=== PATIENT | female | born 1995 | race Caucasian/White ===

== ENCOUNTER 2019-10-23 13:56 | Emergency (ER) | payer SELFPAY ==
[2019-10-23 14:01] VITALS: BP 149/77; PULSE 113; RESP 16; TEMP 36.7; O2SAT 100
[2019-10-23 15:06] LABS: Abs Immature Grans 0.02 k/cumm (0.0-0.09); Absolute Basophil Count 0.04 k/cumm (0.0-0.2); Absolute Lymphocyte Count 1.61 k/cumm (1.2-3.4); Absolute Monocyte Count 0.46 k/cumm (0.11-0.7); Basophils % 0.7; Eosinophils % 10.1; HCT 38.9 % (36.0-46.0); HGB 13.8 g/dL (12.0-15.5); Immature Grans % 0.3 %; Lymphocytes % 27.2; Mean Corp. HGB Concentration 35.5 g/dL (32.0-36.0); Mean Corpuscular Hemoglobin 30.6 pg (27.0-33.0); Mean Corpuscular Volume 86.3 fL (80-95); Mean Platelet Volume 9.7 fL (8.0-11.0); Monocytes % 7.8; Neutrophils % 53.9; Platelet Count 396 x1000/uL (130-400); RBC 4.51 m/cumm (4.00-5.20); RBC Distribution Width 12.3 % (11.7-14.6); White Blood Cell Count 5.93 k/cumm (4.4-10.8)
--- NOTE | 2019-10-23 15:51 | ED.GENADUL_ITS ---
Discharge Plan Disposition Patient Disposition: HOME Condition: Stable Discharge Details Chief Complaint: Orthopedic Clinical Impression: Carpopedal spasm Primary Care Provider: None,None ED Provider: James Sanchez Home Meds and New Rx's Prescriptions: No Action No Known Home Meds RF: 0 Discharge Instructions Instructions: Carpopedal Spasm (ED) Additional Instructions: Wear splint as needed, advance activity as tolerated. [id number] medication such as Tylenol and/or Motrin as directed for discomfort. Please watch for new or worsening symptoms and return to the ER for any concerns. I have given my care management team your name and number, they should be reaching out to you tomorrow to help expedite outpatient care. Medical Decision Making This is a 24-year-old female who reports 2-year history of nearly weekly intermittent spasms of bilateral hands and face. Has never had this evaluated before. She does report that it is more highly associated with anxiety but not always present with anxiety. I do appreciate spasm of the right hand. She appears well, nontoxic. As above she does appear slightly anxious. Her pulse in triage was 113 but her heart rate was in the 90s during my evaluation. We discussed breathing techniques and that the most likely diagnosis is certainly that of carpal pedal spasms however I would like to obtain blood work to evaluate her hydration status, electrolytes, calcium level, etc. Given the length of her symptoms, diagnosis of tetanus far less likely. Laboratory values unremarkable. Patient did focus on her breathing, no longer anxious, symptoms were improving. Medical Records Medical records reviewed: Yes I reviewed the patient's medical records. Lab Data Lab results reviewed: Yes I reviewed the patient's lab results. Lab results narrative: Laboratory Tests Range/Units 10/23/19 10/23/19 10/23/19 14:57 14:57 15:24 WBC (4.4-10.8) k/cumm 5.93 Cancelled RBC (4.00-5.20) m/cumm 4.51 Cancelled Hgb (12.0-15.5) g/dL 13.8 Cancelled Hct (36.0-46.0) % 38.9 Cancelled MCV (80-95) fL 86.3 Cancelled MCH (27.0-33.0) pg 30.6 Cancelled MCHC (32.0-36.0) g/dL 35.5 Cancelled RDW (11.7-14.6) % 12.3 Cancelled Plt Count (130-400) x1000/uL 396 Cancelled MPV (8.0-11.0) fL 9.7 Cancelled Immature Gran % % 0.3 Cancelled Neutrophils % 53.9 Cancelled Band Neutrophils % Cancelled Lymphocytes % 27.2 Cancelled Atypical Lymphs % Cancelled Monocytes % 7.8 Cancelled Eosinophils % 10.1 Cancelled Basophils % 0.7 Cancelled Metamyelocytes % Cancelled Myelocytes % Cancelled Promyelocytes % Cancelled Absolute Neutrophils (1.2-6.7) k/cumm 3.20 Cancelled Absolute Lymphocytes (1.2-3.4) k/cumm 1.61 Cancelled Absolute Monocytes (0.11-0.7) k/cumm 0.46 Cancelled Absolute Eosinophils (0.0-0.7) k/cumm 0.60 Cancelled Absolute Basophils (0.0-0.2) k/cumm 0.04 Cancelled Nucleated RBCs Cancelled Differential Comment Cancelled Other Cell Type Cancelled RBC Morphology Cancelled Polychromasia Cancelled Hypochromasia Cancelled Poikilocytosis Cancelled Basophilic Stippling Cancelled Anisocytosis Cancelled Microcytosis Cancelled Macrocytosis Cancelled Spherocytes Cancelled Target Cells Cancelled Tear Drop Cells Cancelled Ovalocytes Cancelled Stomatocytes Cancelled [place] Bodies Cancelled [place] Cells Cancelled Acanthocytes (Spur) Cancelled Schistocytes Cancelled Sodium Cancelled Potassium Cancelled Chloride Cancelled Carbon Dioxide Cancelled Anion Gap Cancelled BUN Cancelled Creatinine Cancelled Estimated GFR/1.73 m2 Cancelled Glucose Cancelled Calcium Cancelled Total Bilirubin Cancelled AST Cancelled ALT Cancelled Alkaline Phosphatase Cancelled Total Protein Cancelled Albumin Cancelled Range/Units 10/23/19 15:35 WBC (4.4-10.8) k/cumm RBC (4.00-5.20) m/cumm Hgb (12.0-15.5) g/dL Hct (36.0-46.0) % MCV (80-95) fL MCH (27.0-33.0) pg MCHC (32.0-36.0) g/dL RDW (11.7-14.6) % Plt Count (130-400) x1000/uL MPV (8.0-11.0) fL Immature Gran % % Neutrophils % Band Neutrophils % Lymphocytes % Atypical Lymphs % Monocytes % Eosinophils % Basophils % Metamyelocytes % Myelocytes % Promyelocytes % Absolute Neutrophils (1.2-6.7) k/cumm Absolute Lymphocytes (1.2-3.4) k/cumm Absolute Monocytes (0.11-0.7) k/cumm Absolute Eosinophils (0.0-0.7) k/cumm Absolute Basophils (0.0-0.2) k/cumm Nucleated RBCs Differential Comment Other Cell Type RBC Morphology Polychromasia Hypochromasia Poikilocytosis Basophilic Stippling Anisocytosis Microcytosis Macrocytosis Spherocytes Target Cells Tear Drop Cells Ovalocytes Stomatocytes [place] Bodies [place] Cells Acanthocytes (Spur) Schistocytes Sodium 141 Potassium 4.0 Chloride 102 Carbon Dioxide 28.3 Anion Gap 10.7 BUN 7 Creatinine 0.67 Estimated GFR/1.73 m2 >= 60.00 Glucose 99 Calcium 8.7 Total Bilirubin 0.4 AST 26 ALT 44 Alkaline Phosphatase 49 Total Protein 8.0 Albumin 4.3 HPI General Mode of arrival: ambulatory . Date/Time Provider Initiated Documentation: 10/23/19 14:04 . Limitations to Documentation: no limitations . Information obtained by: patient . HPI Narrative: This is a 24-year-old female with a history of social anxiety, reports bilateral hand cramping and facial twitching intermittent for 2 years, this episode has been going on since this morning. She has never had this evaluated. She reports pain in her hands with cramping. She reports that typically her symptoms are worse if she is more anxious or hyperventilating. She denies recent illness or trauma. She denies headache, visual changes, numbness, weakness, chest pain, shortness of breath no abdominal pain, nausea, vomiting. She does report tingling in her face associated with the twitching Related Data Home Medications Medication Instructions Recorded Confirmed Unknown [No Known Home Meds] 10/23/19 10/23/19 Allergies Allergy/AdvReac Type Severity Reaction Status Date / Time No Known Allergies Allergy Unverified 10/23/19 14:05 General Stated Complaint: Orthopedic RAYMOND: 3 Review of Systems Constitutional Constitutional: Denies chills, Denies fatigue, Denies fever(s), Denies heada martin(s) and Denies weakness Eyes Eyes: Denies change in vision ENT Ears, Nose, Mouth, and Throat: Denies dizziness and Denies headache(s) Cardiovascular Cardiovascular: Denies chest pain and Denies dyspnea Respiratory Respiratory: Denies dyspnea Gastrointestinal Gastrointestinal: Denies abdominal pain, Denies nausea and Denies vomiting Musculoskeletal Musculoskeletal: Denies myalgias, Reports muscle cramps, Denies numbness and Reports tingling Integumentary/Breasts Skin/Breast: Denies rash Neurologic Neurologic: Denies dizziness, Denies headache(s), Denies numbness, Reports tingling and Denies weakness Psychiatric Psychiatric: Reports anxiety Endocrine Endocrine: Denies fatigue [facility] Social History Smoking/Tobacco Use Status: Never Alcohol Intake: current Alcohol Intake frequency: a few times a month Drug use: Daily Substance use type: marijuana Do you feel safe at home: Yes Do you feel safe in your relationship?: Yes Exam Const General: cooperative, healthy appearing and anxious Orientation: alert, awake and oriented x3 HENMT Head: normal to inspection, normocephalic and atraumatic Face and sinus: normal facial exam and other (At the time of my eval I do not see any spasms in the face) Mouth: moist mucous membranes Eyes Conjunctivae: conjunctivae normal Sclera: sclerae normal Cornea: corneas normal Pupils: PERRL EOM: EOM intact bilaterally Direct ophthalmoscopy: normal light reflex Neck Neck: normal visual inspection, full ROM, trachea midline and supple Resp Effort & Inspection: normal respiratory effort and able to speak in complete sentences Auscultation: clear to auscultation bilaterally Cardio Rate: regular rate Rhythm: regular rhythm Back/Spine/Pelvis Back: No back tenderness Skin General skin exam: no rashes or lesions noted Neuro General: alert, awake, oriented x3, moves all extremities and no focal motor deficits Cranial Nerves: CN's II-XI intact bilaterally Cognition: normal cognition Speech: speech normal Motor: muscle tone normal throughout and strength 5/5 throughout Sensory Exam: no sensory deficits noted Extrem Right upper extremity: hand (Carpal spasms) Left upper extremity: normal to inspection Right lower extremity: normal to inspection Left lower extremity: normal to inspection Psych Appearance: grossly normal Mental Status: mental status grossly normal Course Vital Signs Vital signs: Vital Signs Temperature 36.7 C 10/23/19 14:01 Pulse 113 H 10/23/19 14:01 Respiratory Rate 16 10/23/19 14:01 Blood Pressure 149/77 H 10/23/19 14:01 Pulse Oximetry 100 10/23/19 14:01 Temperature 36.7 C 10/23/19 14:01 Temperature Source Temporal Artery Scan 10/23/19 14:01 Pulse 113 H 10/23/19 14:01 Respiratory Rate 16 10/23/19 14:01 Respiratory Effort Non-Labored 10/23/19 14:04 Blood Pressure 149/77 H 10/23/19 14:01 Blood Pressure Position Sitting 10/23/19 14:01 Pulse Oximetry 100 10/23/19 14:01 Oxygen Delivery Method Room Air 10/23/19 14:01 Oxygen Flow Rate 0 10/23/19 14:01 Pain Level 6 10/23/19 14:01 Lab/Test Results Lab/Test Results: Laboratory Tests Range/Units 10/23/19 10/23/19 10/23/19 14:57 14:57 15:24 WBC (4.4-10.8) k/cumm 5.93 Cancelled RBC (4.00-5.20) m/cumm 4.51 Cancelled Hgb (12.0-15.5) g/dL 13.8 Cancelled Hct (36.0-46.0) % 38.9 Cancelled MCV (80-95) fL 86.3 Cancelled MCH (27.0-33.0) pg 30.6 Cancelled MCHC (32.0-36.0) g/dL 35.5 Cancelled RDW (11.7-14.6) % 12.3 Cancelled Plt Count (130-400) x1000/uL 396 Cancelled MPV (8.0-11.0) fL 9.7 Cancelled Immature Gran % % 0.3 Cancelled Neutrophils % 53.9 Cancelled Band Neutrophils % Cancelled Lymphocytes % 27.2 Cancelled Atypical Lymphs % Cancelled Monocytes % 7.8 Cancelled Eosinophils % 10.1 Cancelled Basophils % 0.7 Cancelled Metamyelocytes % Cancelled Myelocytes % Cancelled Promyelocytes % Cancelled Absolute Neutrophils (1.2-6.7) k/cumm 3.20 Cancelled Absolute Lymphocytes (1.2-3.4) k/cumm 1.61 Cancelled Absolute Monocytes (0.11-0.7) k/cumm 0.46 Cancelled Absolute Eosinophils (0.0-0.7) k/cumm 0.60 Cancelled Absolute Basophils (0.0-0.2) k/cumm 0.04 Cancelled Nucleated RBCs Cancelled Differential Comment Cancelled Other Cell Type Cancelled RBC Morphology Cancelled Polychromasia Cancelled Hypochromasia Cancelled Poikilocytosis Cancelled Basophilic Stippling Cancelled Anisocytosis Cancelled Microcytosis Cancelled Macrocytosis Cancelled Spherocytes Cancelled Target Cells Cancelled Tear Drop Cells Cancelled Ovalocytes Cancelled Stomatocytes Cancelled [place] Bodies Cancelled [place] Cells Cancelled Acanthocytes (Spur) Cancelled Schistocytes Cancelled Sodium Cancelled Potassium Cancelled Chloride Cancelled Carbon Dioxide Cancelled Anion Gap Cancelled BUN Cancelled Creatinine Cancelled Estimated GFR/1.73 m2 Cancelled Glucose Cancelled Calcium Cancelled Total Bilirubin Cancelled AST Cancelled ALT Cancelled Alkaline Phosphatase Cancelled Total Protein Cancelled Albumin Cancelled
[2019-10-23 15:54] LABS: ALT 44 U/L (14-59); AST 26 U/L (15-37); Albumin 4.3 g/dL (3.4-5.0); Alkaline Phosphatase 49 U/L (46-116); Anion Gap 10.7 mmol/L (3-11); BUN 7 mg/dL (7-18); Bilirubin, Total 0.4 mg/dL (0.2-1.0); CO2 28.3 mmol/L (21.0-32.0); CREATININE 0.67 mg/dL (0.55-1.02); Calcium 8.7 mg/dL (8.5-10.1); Chloride 102 mmol/L (98-107); Glucose 99 mg/dL (74-106); Sodium 141 mmol/L (136-145)
== END 2019-10-23 16:55 | disposition home or self-care (01) ==
PROVIDERS: Emergency Provider Physician Assistant; PCP Nurse Practitioner Family
DX: R25.2 Cramp and spasm (principal); F41.9 Anxiety disorder, unspecified
CPT/HCPCS: 36415; 80053; 99283; 85025; L3807